=== PATIENT | female | born 1940 | race Caucasian/White ===

== ENCOUNTER 2019-07-12 21:00 | Emergency (ER) | payer BC ==
[2019-07-12] MEDS ORDERED: oxyCODONE/Acetamin 5/325 MG* TAB PO ONE (23:07)
--- NOTE | 2019-07-12 23:07 | ED ---
Lower Extremity - HPI Summary HPI Summary: 79 year old female presents with left foot injury. States that she ended up twisting her foot while she was trying to lift something for her . She denies any numbness or tingling. She is unable to able to placing weight on the area. She denies any previous fracture to the area. No ankle pain. No other injury. Has history of high blood pressure. - History of Current Complaint Chief Complaint: EDExtremityLower Stated Complaint: LEFT ANKLE INJURY PER Time Seen by Provider: 07/12/19 22:57 Pain Intensity: 7 - Allergies/Home Medications Allergies/Adverse Reactions: Allergies Allergy/AdvReac Type Severity Reaction Status Date / Time No Known Allergies Allergy Verified 05/25/14 18:49 PMH/Surg Hx/FS Hx/Imm Hx Endocrine/Hematology History: Denies: Hx Diabetes, Hx Thyroid Disease Cardiovascular History: Reports: Hx Hypertension - CONTROLLED DAILY MEDS Denies: Hx Pacemaker/ICD Respiratory History: Denies: Hx Asthma, Hx Chronic Obstructive Pulmonary Disease (COPD) GI History: Reports: Hx Gastroesophageal Reflux Disease - ON DAILY MEDS, Hx Hiatal Hernia Denies: Hx Ulcer Musculoskeletal History: Denies: Hx Rheumatoid Arthritis, Hx Osteoporosis Sensory History: Reports: Hx Cataracts - BILATERAL, Hx Contacts or Glasses Denies: Hx Hearing Aid Opthamlomology History: Reports: Hx Cataracts - BILATERAL, Hx Contacts or Glasses Psychiatric History: Reports: Hx Anxiety - Hx OF, NONE NOW, NO MEDS, Hx Depression Denies: Hx Panic Disorder - Cancer History Hx Chemotherapy: No Hx Radiation Therapy: No - Surgical History Surgery Procedure, Year, and Place: Back surgery 2011 [place], breast biopsy, cyst removed from wrist, minor dermatology Hx Anesthesia Reactions: No Infectious Disease History: No Infectious Disease History: Denies: Hx Hepatitis, Hx Human Immunodeficiency Virus (HIV), Traveled Outside the [place] in Last 30 Days - Social History Alcohol Use: Weekly Alcohol Amount: 1-2 DRINKS/MONTH Substance Use Type: Reports: None Smoking Status (MU): Never Smoked Tobacco Amount Used/How Often: OCCASSIONAL Length of Time of Smoking/Using Tobacco: 10 YRS Have You Smoked in the Last Year: No Review of Systems Negative: Fever Negative: Chest Pain Negative: Shortness Of Breath Positive: Myalgia - left foot pain All Other Systems Reviewed And Are Negative: Yes Physical Exam Triage Information Reviewed: Yes Vital Signs On Initial Exam: Initial Vitals Temp Pulse Resp BP Pulse Ox 99.2 F 68 18 197/101 98 07/12/19 21:20 07/12/19 21:20 07/12/19 21:20 07/12/19 21:20 07/12/19 21:20 Vital Signs Reviewed: Yes Appearance: Positive: Well-Appearing Skin: Positive: Warm, Dry Head/Face: Positive: Normal Head/Face Inspection Eyes: Positive: Normal, Conjunctiva Clear ENT: Positive: Pharynx normal Respiratory/Lung Sounds: Positive: Clear to Auscultation, Breath Sounds Present Cardiovascular: Positive: Normal, RRR Musculoskeletal: Positive: Limited @ - left foot, Other - tenderness left 5th metatarsal, good pulses, able to wiggle toes, sensation grossly intact Neurological: Positive: Normal Psychiatric: Positive: Normal Diagnostics - Vital Signs Vital Signs Temp Pulse Resp BP Pulse Ox 07/12/19 23:01 98.7 F 72 16 188/90 97 07/12/19 21:20 99.2 F 68 18 197/101 98 - Laboratory Lab Statement: Any lab studies that have been ordered have been reviewed, and results considered in the medical decision making process. - Radiology foot Radiology Interpretation Completed By: ED Physician Summary of Radiographic Findings: 5th metatarsal fx Lower Extremity Course/Dx - Course Course Of Treatment: 79 year old female presents with left foot injury. States that she ended up twisting her foot while she was trying to lift something for her . She denies any numbness or tingling. She is unable to able to placing weight on the area. She denies any previous fracture to the area. No ankle pain. No other injury. Has history of high blood pressure. On exam has tenderness over left fifth metatarsal. Neurovascular intact. X-ray shows fracture fifth metatarsal. As patient unable to ambulate with a walker or crutches well gave boot. gave walker to try to keep weight off as much as tolerated. Told to follow-up with orthopedic. Patient understands agrees plan. - Diagnoses Differential Diagnosis/HQI/PQRI: Positive: Fracture (Closed), Sprain, Strain Provider Diagnoses: Fracture of fifth metatarsal bone Discharge ED - Sign-Out/Discharge Documenting (check all that apply): Patient Departure Patient Received Moderate/Deep Sedation with Procedure: No - Discharge Plan Condition: Good Disposition: HOME Prescriptions: oxyCODONE/Acetamin 5/325 MG* [Percocet 5/325 TAB*] 1 tab PO Q6H PRN #20 tab MDD 4 PRN Reason: Pain - Severe Patient Education Materials: Foot Fracture in Adults (ED) Referrals: Magy Murillo MD [Primary Care Provider] - Hari Bui MD [Medical Doctor] - Additional Instructions: Use walker Keep boot on the area Call ortho office tomorrow to set up appointment for follow up Use tyenlol for pain every 6 hours and use percocet for breakthrough pain every 6 hours Ice, elevate Return to ED if develop numbness or tingling or any new or worsening symptoms - Billing Disposition and Condition Condition: GOOD Disposition: Home - Attestation Statements Provider Attestation: I was available for consultation for this patient. I did not evaluate the patient or participate in any medical decision making or disposition decisions unless I am specifically named in the chart as having consulted on the patient. If I have consulted on the patient, please see my own ED note on the patient encounter. Ramesh Blue MD
[2019-07-12 23:29] VITALS: BP 174/89
== END 2019-07-12 23:28 | disposition home or self-care (01) ==
LOC: ED 21:00
DX: S92.352A Displaced fracture of fifth metatarsal bone, left foot, initial encounter for closed fracture (principal); I10 Essential (primary) hypertension; K21.9 Gastro-esophageal reflux disease without esophagitis; X50.9XXA Other and unspecified overexertion or strenuous movements or postures, initial encounter; Y92.9 Unspecified place or not applicable
CPT/HCPCS: 99282; A9270-GY